=== PATIENT | female | born 2000 | race Caucasian/White ===

== ENCOUNTER 2019-11-21 18:53 | Emergency (ER) | payer SELFPAY ==
--- NOTE | 2019-11-21 19:16 | NUR ---
CHARGE NURSE DANN NOTIFIED AND AWARE.
== END 2019-11-21 19:16 | disposition left against medical advice (07) ==
LOC: MED 18:53
DX: R51 Headache (principal); Z53.21 Procedure and treatment not carried out due to patient leaving prior to being seen by health care provider

== ENCOUNTER 2019-12-25 19:02 | Emergency (ER) | payer MEDICAID ==
[~2019-12-25] VITALS: Ht 157.5 cm; Wt 56.7 kg
[2019-12-25 19:02] VITALS: BP_SYST 135; BP_SYST 141; BP_DIAS 80; BP_DIAS 87
[2019-12-25] MEDS ORDERED: DEXAMETHASONE 10 MG/ML VIAL IVP ONE (19:15)
[2019-12-25] MEDS ORDERED: diphenhydrAMINE 50 MG/ML VIAL IVP ONE (19:15)
[2019-12-25] MEDS ORDERED: NACL 0.9% 1,000 ML IV ONE (19:15)
[2019-12-25] MEDS ORDERED: FAMOTIDINE 20 MG/2 ML VIAL IVP ONE (19:15)
[2019-12-25] MEDS ORDERED: EPINEPHrine 1:1000 - 1 MG/ML AMP IM ONE (19:15)
[2019-12-25] MEDS ORDERED: ACETAMINOPHEN 325 MG TAB PO ONE (20:50)
[2019-12-25] MEDS ORDERED: ACETAMINOPHEN 325 MG TAB ONE ×2 (20:59→21:01)
[2019-12-25 22:28] VITALS: BP 106/66
== END 2019-12-25 22:26 | disposition home or self-care (01) ==
LOC: MED 19:02
DX: T78.3XXA Angioneurotic edema, initial encounter (principal); R03.0 Elevated blood-pressure reading, without diagnosis of hypertension; R11.2 Nausea with vomiting, unspecified; Z88.8 Allergy status to other drugs, medicaments and biological substances
CPT/HCPCS: 81025; 96361; 96372; 96374; 96375; 99284; J0171; J1100; J1200; J3490; J7030

== ENCOUNTER 2020-01-01 20:48 | Emergency (ER) | payer MEDICAID ==
[~2020-01-01] VITALS: Ht 154.9 cm; Wt 52.2 kg
[2020-01-01 21:13] VITALS: BP 118/69
[2020-01-01] MEDS ORDERED: NACL 0.9% 1,000 ML IV ONE (21:50)
[2020-01-01] MEDS ORDERED: MAG SULF 2000 MG/WATER PREMIX 50 ML IV ONE (21:50)
[2020-01-01] MEDS ORDERED: KETOROLAC 15 MG/ML VIAL IVP ONE (21:50)
--- NOTE | 2020-01-01 22:30 | NUR ---
19 Y/O F PRESENTS TO ED C/O CHEST PAIN AND LT SIDED WEAKNESS X 1 DAY. PT STATES BEING SEEN IN A CLINIC AT [place] ON AND WAS DIAGNOSED WITH LOW BP, PT STATES BEING PRESCRIBED WITH A MEDICATION, DOESN'T REMEMBER THE NAME AND STOPPED TAKING IT ON Nov. PT STATES EXPEREIENCING LT SIDED WEAKNESS AND CHEST PAIN X 1 DAY. PEDAL PULSES STRONG BILAT AND RADIAL PULSES STRONG BILAT. EXTREMITIES WARM TO TOUCH. PT ABLE TO WALK WITH NO DIFFICULTY AND ABLE TO MOVE LEGS AND ARMS WITH NO DIFFICULTY. PMH: BRONCHITIS ALLERGIES: RISPERIDONE.
--- NOTE | 2020-01-02 00:24 | NUR ---
Patient discharged with v/s stable. Written and verbal after care instructions given and explained. Patient verbalized understanding. Ambulatory with steady gait. All questions addressed prior to discharge. Advised to follow up with PMD.
[2020-01-02 00:28] VITALS: BP 112/65
== END 2020-01-02 00:22 | disposition home or self-care (01) ==
LOC: MED 20:48
DX: F41.0 Panic disorder [episodic paroxysmal anxiety] (principal); R51 Headache; R53.1 Weakness
CPT/HCPCS: 71045; 81025; 93005; 96365; 96366; 96375; 99284; J1885; J3475; J7030; Q0092